=== PATIENT | female | born 1950 | race Caucasian/White ===

== ENCOUNTER → 2023-11-18 11:00 | Outpatient (REF) | payer MEDICARE, OTHER, SELFPAY | LOC: HWRAD 11:00 | PROVIDERS: ATTENDING PHYSICIAN Internal Medicine Cardiovascular Disease; FAMILY PHYSICIAN Internal Medicine | DX: I48.0 Paroxysmal atrial fibrillation (principal) | CPT/HCPCS: 71046 ==

== ENCOUNTER 2024-06-17 09:42 | Inpatient (IN) | payer MEDICARE, OTHER, SELFPAY ==
[2024-06-15 10:55] VITALS: BMI 28.6
[2024-06-15 11:37] LABS: % Basophils 0.9 % (0-2); % Eosinophils 1.7 % (0-6); % Immature Granulocytes 0.3 % (0-0.5); % Lymphocytes 12.5 % (20.5-51.1); % Monocytes 12.4 % (1.7-9.3); % Neutrophils 72.2 % (42.2-75.2); Absolute Basophils 0.1 10^3/uL (0-0.2); Absolute Eosinophils 0.1 10^3/uL (0-0.7); Absolute Lymphocytes 0.8 10^3/uL (1.2-3.4); Absolute Monocytes 0.8 10^3/uL (0.1-0.6); Absolute Neutrophils 4.7 10^3/uL (1.4-6.5); Hematocrit 42.5 % (37.0-47.0); Hemoglobin 14.7 g/dL (12.0-16.0); Mean Corp Hgb Conc. 34.6 g/dL (33.0-37.0); Mean Corpuscular Hgb 30.4 pg (27.0-31.0); Mean Platelet Volume 10.6 fL (7.4-10.4); Nucleated Red Blood Cells % 0 %; Platelet Count 245 10^3/uL (130-400); Red Blood Cell Count 4.83 10^6/uL (4.20-5.40); Red Cell Dist. Width 13.2 % (11.5-14.5); White Blood Cell Count 6.5 10^3/uL (4.8-10.8)
[2024-06-15 11:49] LABS: PT 18.6 Sec (11.4-14.6)
[2024-06-15 11:59] LABS: ALT (SGPT) 84 U/L (0-35); AST (SGOT) 53 U/L (14-36); Albumin 4.4 g/dl (3.5-5.0); Alkaline Phosphatase 106 U/L (38-126); Blood Urea Nitrogen 20 mg/dl (7-17); Calcium 9.6 mg/dl (8.4-10.2); Carbon Dioxide 30 mmol/L (22-30); Chloride 100 mmol/L (98-107); Estimated Creatinine Clearance 37 ml/min; Glucose 107 mg/dl (70-99); Potassium 4.2 mmol/L (3.5-5.1); Sodium 140 mmol/L (135-145); Total Bilirubin 0.7 mg/dl (0.2-1.3); Total Protein 6.9 g/dl (6.3-8.2); eGFR 48.39
[2024-06-17] VITALS (10 sets, daily range): BP systolic 89–157; BP diastolic 47–71; BMI 28.4
--- NOTE | 2024-06-17 10:45 | PTCARENOTE ---
Patient admitted to room 2267 in anticipation of scheduled procedure today. Patient states NPO except for sips water since midnight, CHG shower completed at home. 20 gauge PIV placed. Admission info obtained, medications reconciled, prep completed.
Lifevest removed per physician, Zoll pads placed. See work list for full assessment and interventions performed.
--- NOTE | 2024-06-17 10:51 | CM ---
Chart reviewed. Patient is independent of ADLS, lives with her in a 2 S[address], 4 TRELL, 0 DME. Plan is for the patient to return home. CM to follow
[2024-06-17] MEDS: BACTROBAN 2% OINTMENT 1 APPLIC NASAL (11:07)
--- NOTE | 2024-06-17 13:45 | PTCARENOTE ---
Patient transported to [facility] via bed w/lab pack chemist RN x 2.
--- NOTE | 2024-06-17 16:24 | CON.INTV ---
Consultation
Consultation Request
Date/Time Consultation Requested: 06/17/2024
Date/Time Consultation Performed: 06/17/2024
Requesting Provider: Dr. Ackerman
Performing Provider: Dr. Kadeem Pinto
Reason for Consultation: Status post pacemaker lead extraction
Medical History
-
History of Present Illness:
73-year-old man with past medical history significant for paroxysmal ventricular tachycardia, nonsustained ventricular tachycardia, chronic amiodarone use, hypertension, history of kidney stone, ICD in place, hypertrophic cardiomyopathy,
Past Medical History
Past Medical History: Other (See assessment and plan)
Social History
Tobacco: Non-smoker (Never smoker)
Alcohol: None
Drug: None
Family History
Family History: Reviewed & Not Pertinent
Allergies / Home Medications
Allergies
Allergy/AdvReac Type Severity Reaction Status Date / Time
penicillin V potassium Allergy Rash Verified 12/05/21 06:14
[From [facility]]
Penicillins Allergy Rash Verified 12/05/21 06:14
Home Medications
�Medication �Instructions �Recorded �Confirmed �Last Taken �Type
apixaban 5 mg tablet (Eliquis) 5 mg PO BID 08/09/19 06/17/24 06/15/24 20:00 History
cholecalciferol (vitamin D3) 25 1,000 unit PO DAILY 08/09/19 12/05/21 06/08/24 08:00 History
mcg (1,000 unit) capsule (Vitamin
D3)
latanoprost (PF) 0.005 % eye drops 1 drp BOTH EYES HS 08/09/19 12/05/21 06/16/24 20:00 History
multivitamin 2 ea PO DAILY 08/09/19 12/05/21 06/16/24 08:00 History
rosuvastatin 20 mg tablet 20 mg PO HS 08/09/19 06/17/24 05/26/24 08:00 History
sotalol 80 mg tablet 80 mg PO BID 08/09/19 12/05/2112/05/22 05:00 History
timolol 0.25 % eye drops (Betimol) 1 drp RIGHT EYE BID@0900,1700 08/09/19 12/05/21 06/16/24 20:00 History
ascorbic acid (vitamin C) 250 mg 500 mg PO DAILY 11/20/21 12/05/21 06/16/24 08:00 History
tablet
metoprolol tartrate 50 mg tablet 100 mg PO BID 11/20/21 06/17/24 06/17/24 08:00 History
amiodarone 200 mg tablet 200 mg PO DAILY 06/17/24 06/17/24 06/17/24 08:00 History
brimonidine 0.2 % eye drops 1 drp ophthalmic (eye) BID 06/17/24 06/17/24 06/16/24 20:00 History
furosemide 20 mg tablet 20 mg PO DAILY 06/17/24 06/17/24 06/16/24 08:00 History
Review of Systems
-
History Source: Patient
All other systems: Negative unless noted
Vitals / Labs / Diagnostic Testing
Vital Signs
Temp Pulse Resp Pulse Ox
97.9 F 79 18 95
06/17/24 09:56 06/17/24 13:35 06/17/24 10:45 06/17/24 10:00
Lab Data
06/15/24 11:24
06/15/24 11:24
Diagnostic Testing:
Physical Exam
-
HEENT: Normocephalic
Cardiovascular: S1/S2
Respiratory: Clear and Non-Labored Respirations
GI: Soft and Non Distended
Neurology: Awake, AO x 3 and No Motor Deficits
Skin: Warm
General: Comfortable
Assessment
-
Status post pacemaker lead extraction due to fractured lead with reimplantation- Dr. Ackerman 06/17/2024
Conditions present prior admission:
Hypertrophic cardiomyopathy
Hyperlipidemia
Paroxysmal atrial fibrillation
History of nonsustained ventricular tachycardia
ICD in place
Long-term amiodarone use
Hypertension
History of kidney stones
Assessment and plan:
Postprocedure cardiovascular ICU monitoring.
Chest x-ray 06/15/2024: No acute cardiopulmonary process. Left-sided dual-lead ICD with intact leads.
Restart outpatient medications
Prophylactic antibiotics given
monitor for hematoma
Analgesia
Currently appears euvolemic.
To restart oral diuretics
Advance diet as tolerated
DVT prophylaxis with SCDs. Eventually to restart full anticoagulation
--- NOTE | 2024-06-17 16:42 | ITS.CL.PN ---
Server Service Assistant - Procedure Note
Procedure
Procedure Note:
Extraction Procedure:
Laser Extraction of ICD RV ICD lead and reimplantation.
Ms. Brito is a 73 yrs old woman with hypertrophic cardiomyopathy with non-ischemic cardiomyopathy, paroxysmal atrial fibrillation status post multiple ablations with history of ventricular tachycardia and ICD defibrillation therapy for VT.� Patient
has developed ICD lead malfunction with high increasing thresholds with Doron lead fracture and is at risk of ICD inappropriate shocks and is recommended for ICD lead extraction and replacement.
Indications:
Malfunctioning ICD lead with fracture
Date of the Procedure: 06/17/2024
Pre-Operative Diagnosis: Fractured ICD lead
Post-Operative Diagnosis: Fracture ICD lead
Procedure Performed: RV ICD lead extraction and reimplantation of the ICD lead
�
Performing Physicians:
Paolo Ackerman MD
Anesthesia:
See anesthesia records
Detailed Description of the Procedure:
Written informed consent was obtained from the patient after a full explanation of the risks and benefits of the procedure. The patient was brought to the lab in the fasting state. Prophylactic antibiotics were given prior to the start of the
procedure. Continuous electrocardiographic and hemodynamic monitoring was initiated.
The initial rhythm was normal sinus rhythm.
The ICD device was interrogated and programmed to VVI. All the tachy-therapies were turned off.
General anesthesia with intubation and mechanical conventional ventilation used. Anesthesia staff performed intubation monitored the patient during case. The ventral torso was meticulously prepared with surgical scrub and allowed to dry with no
pooling. Sterile draping was applied to cover the operative field. The image intensifier was draped with a sterile bag and positioned over the patient's chest.
A surgical pause was performed in accordance with hospital regulations. Anesthesia service provided sedation as reported separately. Antibiotics administered IV for risk of bacterial colonization.
Venogram:
A 20 ml upper extremity venogram demonstrated patent left subclavian vein but the leads were buried deep in the tissue with patent lumen away from the leads. �
Groin Prep and vascular access:
After infiltration with lidocaine, large bore venous access was established via the right and left femoral veins. An intra-arterial catheter was placed via the left femoral artery for emergency access.
Endovascular balloon inflation:
A 12 Fr sheath was placed and the guidewire was placed from the right femoral vein to the right IJ. An endovascular occlusion balloon was advanced over the guidewire into the SVC. The balloon was inflated with 20% contrast and adequate occlusion of
the SVC identified. The balloon was deflated and pulled down to the IVC.
Pocket Exploration:
After infiltration with lidocaine, an incision was made in the left delto-pectoral groove over the previously implanted device. Using blunt dissection and electrocautery, the incision was carried down to the level of the device, being careful to
maintain adequate hemostasis and not disrupt the previously implanted lead. Fluoroscopy was performed with showed normal appearance of the existing lead during the procedure. The pocket was dry and no obvious sign of infection was noted. The
generator was removed from the pocket. The lead was released from the scar tissue and the fibrotic tissue was removed.
RV ICD lead extraction:
The RV lead was removed from the generator. The RV lead was imaged and was noted to be attached to the RV apex. A stylet was placed that was unable to go to the tip of the ICD and stopped at mid atrial location.� Attempt was made to unscrew the lead
which was unsuccessful with distal anchoring screw showing no movement. The lead was clipped approximately 4 cm proximal to the entry site into the vein using lead cutting scissors.
The inner channel of the lead was sized and an LLD EZ was inserted. Again LLD EZ was not able to go beyond the proximal edge of distal coil of the ICD lead. Then the EZ Lead Locking Device (LLD) was advanced. The locking mechanism was engaged and
the stylet was fixed in position in the lead. An ETHICON SA8 2 Perma-hand Silk, black braided, 60inch was fixed to the proximal end of the lead to establish additional control.
A 14F Utrip Laser Sheath was tested using the [employer] LimitedX-300 system and found to meet specifications. Under fluoroscopic guidance, tension was applied to the lead via the locking stylet and the suture. Along with an outer sheath, the laser sheath
was advanced over the pacing lead under fluoroscopic guidance until resistance was met. Laser energy was applied in up to 10-second bursts in regions of resistance allowing advancement of the sheaths under fluoroscopic guidance. Laser energy was
applied at the venous entry site, and in the subclavian vein. The laser was able to advance the sheath to the innominate vein. There was resistance noted at the junction of the innominate vein and the SVC. The atrial lead was attached to the ICD
lead but was able to remove from the atrial lead and atrial lead did not move.
With traction and counter traction the ICD lead was released from the RV and was successfully pulled out to the right atrium,
The RV lead was freed and was pulled out of the sheath.
The OSCAR and hemodynamics were monitored under flouroscopic views with no change in BP or hemodynamics and RV cavity and the tricuspid valve remained unchanged.
Using the sheath in place, a table wire was placed into the IVC to be used for ICD lead placement.
ICD lead placement:
The 9Fr long sheath placed. The right ventricular defibrillator lead was advanced into the RV cavity and secured in RV apical septal position with an active fixation technique.
There was excellent sensing, pacing, and impedance from the leads, with no diaphragmatic stimulation at 10 V output.
Bovie cautery, antibiotics, and fluoroscopy were used.
The lead and sheath were withdrawn from the venous system. Hemostasis at the venous entry site was obtained using a 2-0 Vicryl pursestring suture.
The sheath was withdrawn, and the thresholds remained acceptable. The lead was secured in position at the venous entry site with 0-silk. The electrode terminals were connected to the pulse generator, which was placed into the pocket. The wound was
irrigated thoroughly with antibiotic solution.
A Tyrx pouch was placed around the generator and the leads.
The wound was closed in 3 layers using 2-0, V loc sutures followed by two layers of 4-0 VLoc sutures. Steri-Strips and a bandage were applied externally.
Procedure End:
The procedure was tolerated well. A bandage was applied to the incision area to be removed in a day. A pressure dressing was applied.
The sheaths were removed from the groin. Manual pressure applied to access sites to achieve hemostasis. Anesthesia was reversed and the anesthesia staff extubated then observed the patient until the return of pre-sedation mental status. The patient
was transferred to the recovery area.
Estimated Blood loss:
15 cc
Specimens Removed:
Fractured lead removed and send for analysis to [facility].
Urine output:
None
Packs / Drains/ Tubes:
None
Instrument / Sponge Count Correct:
Yes
Complications of the Procedure:
None
Condition of Patient at Time of Transfer:
Hemodynamically stable with no neurological or vascular compromise.
Explanted Device information:
����������� RV ICD Lead:
����������� Medtronic [id number] Nano Sal, SN # [id number]
����������� Explanted on 06/17/2024 � implanted on 09/09/2006
����������� ICD generator:
����������� Medtronic ICD Model# [id number], SN #: [id number]
����������� Explanted on 06/17/2024 � implanted on 01/25/2014
Current Implanted Device information:
����������� Generator: Medtronic; Model: [id number]; Serial # [id number] �
����������� (Implanted 06/17/2024)
����������� Atrial Lead: Medtronic; Model: 5076-52; Serial # [id number]
����������������������� Measured data in the right atrium was sensing of 1.6 mV and, impedance of 418ohms and threshold of 0.75 V at 0.4ms �
����������� Implanted on 09/09/2006
����������� RV Lead: Medtronic; Model: 6935M-62; Serial # [id number]
����������������������� Measured data on the RV lead was sensing of 13.5mV, impedance of 456 ohms and threshold of 1.3 V at 0.4ms. (HVB Impedance 60 ohm)
����������� (Implanted 06/17/2024)
�����������
PROGRAMMING PARAMETERS:
Anthony parameter settings were AAIR <=>DDDR - 60-130�
����������� Paced AV interval: 130ms
����������� Sensed AV interval: 100 ms.
����������� Rate Adaptive A-V Interval: on
Tachy parameter settings:
����������� SVT discrimination: On
����������� AF/AFl: On
����������� SVT limit: 260 msec
����������� VT zone:
����������������������� Slow VT: 150-188 bpm - Monitor
����������������������� Fast VT/ VF: >188 bpm� Shock� x6
Summary:
Successful extraction of the ICD and re-implantation of the ICD lead with now MRI compatible system
Results/Recommendations:
1. Please follow up CXR and ECHO
2. Please Admit to ICU for observation.
3. Please keep the defibrillator pads on and keep on Telemetry.
Paolo Ackerman MD [facility]
Electrophysiology
[2024-06-17] MEDS: AZACTAM 2000 MG IV (17:31)
[2024-06-17] MEDS: STERILE WATER FOR INJECTION 10 ML IV (17:31)
[2024-06-17] MEDS: VANCOCIN 200 IV (17:32)
[2024-06-17] MEDS: APRESOLINE 5 MG IV (17:44)
--- NOTE | 2024-06-17 17:55 | PTCARENOTE ---
Patient received from [facility] s/p lead explantation/new lead implant. A-paced via cm, SaO2 @ 98% on 2lnc. B/L procedural groin sites cdi, no ecchymosis or hematoma noted, distal pulses palp. LCW site cdi, pressure dressing in place w/sling overlying.
Casiano catheter to gravity. to bedside. Dafne Haro updated to status, orders obtained. See work list for full assessment and interventions performed.
--- NOTE | 2024-06-17 21:00 | PTCARENOTE ---
Report received from YANETH David. Walking rounds done. Pt awake, alert, oriented x 4. Speech clear. Moves Extremities equally except left arm which is in arm sling, per order. Pt on 2L/NC. Sats 94-96%. BBS present. Decreased to B bases. CDB
encouraged. Pt in SR with 1st degree AVB, occasional A-paced and V-paced beats. Prolonged QT interval. Pressure dressing to L upper chest dry, clear, intact. Audible heart tones. Pt c/o mild tenderness to incision site intermittently. R radial
A-line present. BP 100-110's systolic. MAPs 70-80's. B groin dressings clear, dry, intact. No hematoma palpated to either groin. No c/o pain to groins or back/flank. Belly soft, nontender. Hypoactive bs x 4. Reports passing flatus. Eats < 50% of her
potato soup for dinner. Denies n/v. Casiano catheter draining clear, yellow urine. Hourly UO recorded. Ongoing plan of care. Groin checks per protocol.
[2024-06-17] MEDS: ALPHAGAN 0.2% EYE DROPS 1 DROP BOTH EYES (22:21)
[2024-06-17] MEDS: LOPRESSOR PO (22:22)
[2024-06-18] VITALS (37 sets, daily range): BP systolic 84–128; BP diastolic 46–69; BMI 28.5
--- NOTE | 2024-06-18 00:05 | PTCARENOTE ---
SBP via A- line 80's more consistently. Relevelled and zeroed. Dampened waveform at times, yet mainly pulsatile. UO decreasing per hour. PA aware. Orders given to notify PA in SBP less than 85 systolic via cuff.
--- NOTE | 2024-06-18 01:30 | PTCARENOTE ---
Addendum entered by Ludin Tucker RN 06/18/24 07:29:
PA made aware of a-line and cuff BPs to R arm and L calf.
Original Note:
Cuff BP on right upper arm 85 and 84 systolic. Pt noted that her PCP and railroad dispatcher have noted in past difficulty taking a BP manually on her R arm. BP cuff switched to L lower leg. BP 108/53. Pt denies lightheadedness, dizziness, diaphoresis. No
signs of bleeding to groin. Palpable DP pulses to B feet. Audible heart tones remain.
[2024-06-18 04:25] LABS: Hematocrit 34.9 % (37.0-47.0); Mean Corp Hgb Conc. 34.4 g/dL (33.0-37.0); Mean Corpuscular Hgb 31.4 pg (27.0-31.0); Mean Corpuscular Volume 91.4 fL (81.0-99.0); Platelet Count 219 10^3/uL (130-400); Red Blood Cell Count 3.82 10^6/uL (4.20-5.40); Red Cell Dist. Width 13.2 % (11.5-14.5); White Blood Cell Count 11.3 10^3/uL (4.8-10.8)
--- NOTE | 2024-06-18 04:30 | PTCARENOTE ---
Pt turned, back washed. Repositioned. No bruising to flank areas, bilaterally.
[2024-06-18 04:48] LABS: Blood Urea Nitrogen 17 mg/dl (7-17); Calcium 8.7 mg/dl (8.4-10.2); Carbon Dioxide 23 mmol/L (22-30); Chloride 106 mmol/L (98-107); Estimated Creatinine Clearance 40 ml/min; Glucose 120 mg/dl (70-99); Magnesium 1.9 mg/dl (1.6-2.3); Potassium 4.4 mmol/L (3.5-5.1); Sodium 139 mmol/L (135-145); eGFR 53.72
--- NOTE | 2024-06-18 05:30 | PTCARENOTE ---
labs drawn and sent. VS recorded.
[2024-06-18] MEDS: ALPHAGAN 0.2% EYE DROPS 1 DROP BOTH EYES (08:51)
[2024-06-18] MEDS: LOPRESSOR 100 MG PO (08:51)
[2024-06-18] MEDS: LASIX 20 MG PO (08:51)
[2024-06-18] MEDS: PACERONE 200 MG PO (08:51)
--- NOTE | 2024-06-18 10:07 | PTCARENOTE ---
assumed care of pt from previous shift RN, V paced on tele, VSS, +peripheral pulses, no edema. Jemma removed without incident. Pt tolerated PO intake, hanley removed, pt voided without difficulty. Sling and pressure dressing removed from left CW/arm
by campbell Lugo dressing intact to PPM site. PIV x2 flush easily. Plan of care reviewed and questions encouraged.
--- NOTE | 2024-06-18 10:56 | W.DS.TRANS ---
DC Summary - Virtualization Engineer
-
Discharge Instructions:
Discharge Diagnosis/Procedures ICD lead extraction and reimplantation
Diet Low Cholesterol
Driving Restrictions No driving for 1 week
Bathing Restrictions OK to Shower
Instructions:
Stand-Alone Forms: DC Inst - Implanted Device
Changes to Home Medications: No
Discharge Medications:
DC Medications w/original date entered in [facility]
apixaban 5 mg tablet (Eliquis) 5 mg PO BID 08/09/19 NEXT DOSE Thursday06/19/2024 in the EVENING
cholecalciferol (vitamin D3) 25 mcg (1,000 unit) capsule (Vitamin D3) 1,000 unit PO DAILY 08/09/19
latanoprost (PF) 0.005 % eye drops 1 drp BOTH EYES HS 08/09/19
multivitamin 2 ea PO DAILY 08/09/19
rosuvastatin 20 mg tablet 20 mg PO HS 08/09/19
sotalol 80 mg tablet 80 mg PO BID 08/09/19
timolol 0.25 % eye drops (Betimol) 1 drp RIGHT EYE BID@0900,1700 08/09/19
ascorbic acid (vitamin C) 250 mg tablet 500 mg PO DAILY 11/20/21
metoprolol tartrate 50 mg tablet 100 mg PO BID 11/20/21
amiodarone 200 mg tablet 200 mg PO DAILY 06/17/24
brimonidine 0.2 % eye drops 1 drp ophthalmic (eye) BID 06/17/24
furosemide 20 mg tablet 20 mg PO DAILY 06/17/24
Home Medication Changes
None
Pending Results: No
--- NOTE | 2024-06-18 10:58 | W.PN.UPDATE ---
Update Note
Progress Note Update
Patient seen and examined. Case discussed in detail with Dr. Worthington. Records reviewed. Echocardiogram ordered and reviewed. No pericardial effusion. Telemetry good. No complications from procedure. Anticipate patient will feel well enough to
go home after lunch today. Follow-up is being arranged for an incision check. All questions answered. Patient knows to resume Eliquis Thursday.
--- NOTE | 2024-06-18 11:28 | PTCARENOTE ---
echo completed, pt is cleared for discharge per Dr. Mijares.
--- NOTE | 2024-06-18 11:39 | W.PN.INTV ---
Today's Communication / Plan
Recommendations
Continue postoperative care
Discharge planning for later today
Assessment
-
Status post pacemaker lead extraction due to fractured lead with reimplantation- Dr. Ackerman 06/17/2024
Conditions present prior admission:
Hypertrophic cardiomyopathy
Hyperlipidemia
Paroxysmal atrial fibrillation
History of nonsustained ventricular tachycardia
ICD in place
Long-term amiodarone use
Hypertension
History of kidney stones
Assessment and plan:
Postprocedure cardiovascular ICU monitoring.
Stable overnight
Asymptomatic
Echocardiogram postprocedure 06/18/2024: Normal pericardium. No pericardial effusion.
Chest x-ray 06/17/2024: Reviewed, minimal increased interstitial markings suggestive of some pulmonary vascular congestion. Otherwise clear, pacer in place without
Continue outpatient medications
Cardiology correspondence reviewed
Discharge planning possibly later today.
Critical care team will sign off
Subjective Dataa
Subjective Data
Date of Service:
Date of Service: June 18, 2024
Chief Complaint: Nurse Sitter Follow Up (Status post lead extraction and reimplantation)
Subjective:
Did well overnight
Denies any significant pain or discomfort
Denies shortness of breath next tolerating breakfast
Review of Systems
Cardiopulmonary: Dyspnea (n) and Dyspnea on Exertion (n)
GI: Abdominal Pain (n) and Nausea (n)
Objective Data
Data Reviewed
Vital Signs / I&O / Oxygen:
Vital Signs
Temp Pulse Resp BP Pulse Ox
98.7 F 64 16 120/52 97
06/18/24 08:00 06/18/24 10:00 06/18/24 08:30 06/18/24 08:30 06/18/24 10:55
Intake and Output
06/17/24 06/18/24 06/19/24
06:59 06:59 06:59
Intake Total 650 / 650
Output Total 415 / 415
Balance 235 / 235
SaO2 97
Nasal Cannula flow liters per 2
minute
Physical Exam
General: Comfortable
HEENT: Normocephalic
Cardiovascular: S1-S2
Respiratory: Non-Labored Respirations
GI: Soft and Non Distended
Neurology: Awake, Alert and No Motor Deficits
Skin: Warm
Labs/Micro/Reports
Lab Data
06/18/24 04:09
06/18/24 04:09
--- NOTE | 2024-06-18 13:47 | W.PN.ANS.POP ---
Anesthesia Post Operative
- Anesthesia Post Op Note
Vital Signs Stable-See Nursing Note: Yes
Airway Patent: Yes
Adequate Pain Control: Yes
Change in Mental Status: No
Current Postoperative Nausea & Vomiting: No
Anesthesia Complications: No
General Anesthetic Recall: No
Unplanned Admission: No
Post Op Hydration Adequate: Yes
--- NOTE | 2024-06-18 14:22 | PTCARENOTE ---
IV lines and tele monitor d/c'ed. Discharge instructions, follow up appointments and medication list reviewed w the pt and questions encouraged.
== END 2024-06-18 14:54 | disposition home or self-care (01) | DRG 265 ==
LOC: CVICU 09:42
PROVIDERS: Anesthesiology; Nurse Practitioner Adult Health; ADMITTING PHYSICIAN Internal Medicine Cardiovascular Disease; CONSULT PHYSICIAN Internal Medicine Critical Care Medicine; FAMILY PHYSICIAN Internal Medicine
PROC: 02PA3MZ Removal of Cardiac Lead from Heart, Percutaneous Approach (ICD-10-PCS; 2024-06-17)
PROC: 02HK3KZ Insertion of Defibrillator Lead into Right Ventricle, Percutaneous Approach (ICD-10-PCS; 2024-06-17)
PROC: B24BZZ4 Ultrasonography of Heart with Aorta, Transesophageal (ICD-10-PCS; 2024-06-17)
DX: T82.110A Breakdown (mechanical) of cardiac electrode, initial encounter (principal); I42.2 Other hypertrophic cardiomyopathy; I48.0 Paroxysmal atrial fibrillation; I10 Essential (primary) hypertension; E78.5 Hyperlipidemia, unspecified; H26.9 Unspecified cataract; N20.0 Calculus of kidney; Y71.2 Prosthetic and other implants, materials and accessory cardiovascular devices associated with adverse incidents; Y83.1 Surgical operation with implant of artificial internal device as the cause of abnormal reaction of the patient, or of later complication, without mention of misadventure at the time of the procedure; Z79.01 Long term (current) use of anticoagulants; Z79.899 Other long term (current) drug therapy; Z87.442 Personal history of urinary calculi; Z95.810 Presence of automatic (implantable) cardiac defibrillator
CPT/HCPCS: 93308; 33241; 33244; 33249; 36415; 71045; 71046; 80048; 80053; 83735; 85025; 85027; 85610; 86850; 86900; 86901; 86920; 93005; 93312; 93320; 93321; 93325; C1721; C1777; C1892; C1894; Q9967